=== PATIENT | male | born 1940 | race Caucasian/White ===

== ENCOUNTER 2016-09-26 15:53 | Emergency (ER) | payer BC ==
[2016-09-26] MEDS ORDERED: ROCEPHIN 1 Gm-D5w 50 ml Bag** 50 ML IV ONE ×2 (16:24→16:42)
[2016-09-26] MEDS ORDERED: Zithromax 500 MG/ 250 ML NaCl Premix 250 ML IV ONE ×2 (16:24→17:01)
[2016-09-26] MEDS ORDERED: DUONEB 0.5-3 MG/3 ml Neb IH ONE ×2 (16:24→16:34)
[2016-09-26 16:40] VITALS: O2SAT 96
[2016-09-26 17:06] LABS: BASOPHIL % 0.3 % (0.0-0.4); Eosinophil % 1.4 % (0.00-5.0); Granulocytes % 67.6 % (36.0-66.0); Lymphocytes % 23.3 % (24.0-44.0); Mean Cell Volume 91.5 fl (78-100); Mean Corpuscular Hemoglobin 31.5 pg (26-32); Mean Platelet Volume 9.3 fl (6-9.5); Monocytes % 7.4 % (0.0-12.0); Platelet Count 166 K/mm3 (150-450); Red Blood Count 4.48 M/mm3 (4.1-5.6); Red Cell Distribution Width 14.9 % (11.5-14.0); White Blood Count 6.6 K/mm3 (4.0-10.5)
--- NOTE | 2016-09-26 17:09 | XRAY ---
Indication: Cough. Comparison: September 22, 2016. PA/lateral chest unchanged again hyperinflated and clear with previous CABG surgery. Heart is not enlarged. No new/acute findings.
[2016-09-26 17:45] LABS: ANION GAP 14.4 MEQ/L (5-15); BLOOD UREA NITROGEN 10 mg/dL (9-20); CHLORIDE 103 mEq/L (98-107); Glucose 167 MG/DL (70-110); Potassium 3.8 mEq/L (3.5-5.1); SODIUM 139 mEq/L (136-145)
--- NOTE | 2016-09-26 18:32 | ERPHSYRPT ---
- History of Present Illness Time Seen by Provider: 09/26/16 16:10 Source: patient Exam Limitations: clinical condition Patient Subjective Stated Complaint: PT REPORTS CHEST CONGESTION BEGINNING LAST WEEK-WAS TX AT [place] WITH ANTIBIOTICS-PT STATES THAT THEY HELPED BUT THEN HE HAD TO STOP TAKING THEM DUE TO THEM GETTING HUNG UP IN HIS THROAT Triage Nursing Assessment: PT PINK WARM ET DRY-AMBULATORY WITH NO DIFFICULTY TO ED RM-NO RETRACTIONS NO DIFFICULTY FINISHING SENTENCES NOTED Allergies/Adverse Reactions: No Known Drug Allergies Allergy (Unverified 09/26/16 16:05) Home Medications: Amlodipine Besylate 5 mg [Norvasc 5 mg] 5 mg PO DAILY 09/26/16 [History] Aspirin 81 gm Chew [Baby Aspirin 81 mg Chew] 81 mg PO DAILY 09/26/16 [ History] Atorvastatin Calcium [Lipitor] 40 mg PO HS 09/26/16 [History] Dorzolamide HCl/Timolol Maleat [Dorzolamide-Timolol Eye Drops] 10 ml OP BID [History] Furosemide 20 mg [Lasix 20 mg] 20 mg PO BID 09/26/16 [History] Gabapentin [Neurontin] 300 mg PO TID 09/26/16 [History] Insulin Aspart [NovoLOG Insulin] 3 unit SQ UD 09/26/16 [History] Insulin Glargine [Lantus Insulin] 15 unit SQ BID 09/26/16 [History] Latanoprost [Xalatan] 2.5 ml OP UD 09/26/16 [History] Lisinopril [Zestril] 40 mg PO DAILY 09/26/16 [History] Metoprolol Succinate 25 mg Xl* [Toprol-Xl 25MG Tablets] 25 mg PO BID [History] Hx Tetanus, Diphtheria Vaccination/Date Given: No Hx Influenza Vaccination/Date Given: No Hx Pneumococcal Vaccination/Date Given: No Immunizations Up to Date: Yes - Past Medical History Pertinent Past Medical History: Yes Cardiac History: Hypertension, Myocardial Infarction ([place]) Endocrine Medical History: Diabetes Type II - Past Surgical History Past Surgical History: Yes Cardiac: CABG Gastrointestinal: Hernia Repair - Social History Smoking Status: Never smoker Exposure to second hand smoke: No Drug Use: none Patient Lives Alone: No - Nursing Vital Signs Nursing Vital Signs: Initial Vital Signs Temperature 98.2 F Temperature Source Oral Pulse Rate 66 Respiratory Rate 16 Blood Pressure [Right Arm] 146/62 Pain Intensity 0 - Physical Exam SpO2: 96 Oxygen Delivery: Room Air - Course EKG Interpreted by Me: RATE, Sinus Rhythm, NORMAL AXIS - Radiology Exams Chest X-ray Interpretation: Interpreted by me (NO NEW/ACUTE FINDING) Ordered Tests: Active Orders 24 hr Category Date Time Status Food Stylist STAT Care 09/26/16 16:24 Active EKG-ER Only STAT Care 09/26/16 16:24 Active IV Insertion STAT Care 09/26/16 16:24 Active Oxygen-ED Only NASAL CANNULA 2 lpm Care 09/26/16 16:24 Active CHEST 2 VIEWS (PA AND LAT) Stat Exams 09/26/16 16:24 Completed BLOOD CULTURE Stat Lab 09/26/16 17:06 Received BMP Stat Lab 09/26/16 16:50 Completed CBC W DIFF Stat Lab 09/26/16 16:50 Completed UA Stat Lab 09/26/16 18:17 Received Respiratory Nebulizer STAT RT 09/26/16 16:25 Completed Medication Summary Discontinued Medications Generic Name Dose Route Start Last Admin Trade Name Freq PRN Reason Stop Dose Admin Albuterol/Ipratropium 3 ml 09/26/16 16:24 09/26/16 16:38 Duoneb 0.5-3 Mg/3 Ml Neb IH 09/26/16 16:25 3 ml STAT ONE Administration Albuterol/Ipratropium Confirm 09/26/16 16:34 Duoneb 0.5-3 Mg/3 Ml Neb Administered 09/26/16 16:35 Dose 3 ml IH .STK-MED ONE Azithromycin 250 mls @ 125 mls/hr 09/26/16 16:24 09/26/16 17:03 Zithromax 500 Mg/ 250 Ml Nacl Premix IV 09/26/16 18:23 125 mls/hr STAT ONE Administration Ceftriaxone Sodium/Dextrose 50 mls @ 100 mls/hr 09/26/16 16:24 09/26/16 16:43 Rocephin 1 Gm-D5w 50 Ml Bag IV 09/26/16 16:53 100 mls/hr STAT ONE Administration Ceftriaxone Sodium/Dextrose Confirm 09/26/16 16:42 Rocephin 1 Gm-D5w 50 Ml Bag Administered 09/26/16 16:43 Dose 50 mls @ ud IV .STK-MED ONE Azithromycin Confirm 09/26/16 17:01 Zithromax 500 Mg/ 250 Ml Nacl Premix Administered 09/26/16 17:02 Dose 250 mls @ ud IV .STK-MED ONE Lab/Rad Data: Laboratory Result Diagrams 09/26/16 16:50 09/26/16 16:50 Laboratory Results 09/26/16 09/26/16 Range/Units 16:50 16:50 WBC 6.6 (4.0-10.5) K/mm3 RBC 4.48 (4.1-5.6) M/mm3 Hgb 14.1 (12.5-18.0) gm/dl Hct 41.0 L (42-50) % MCV 91.5 (78-100) fl MCH 31.5 (26-32) pg MCHC 34.4 (32-36) g/dl RDW 14.9 H (11.5-14.0) % Plt Count 166 (150-450) K/mm3 MPV 9.3 (6-9.5) fl Gran % 67.6 H (36.0-66.0) % Lymphocytes % 23.3 L (24.0-44.0) % Monocytes % 7.4 (0.0-12.0) % Eosinophils % 1.4 (0.00-5.0) % Basophils % 0.3 (0.0-0.4) % Basophils # 0.02 (0-0.4) Sodium 139 (136-145) mEq/L Potassium 3.8 (3.5-5.1) mEq/L Chloride 103 (98-107) mEq/L Carbon Dioxide 25.0 (21-32) mEq/L Anion Gap 14.4 (5-15) MEQ/L BUN 10 (9-20) mg/dL Creatinine 1.18 (0.55-1.30) mg/dl Estimated GFR > 60 ML/MIN Glucose 167 H (70-110) MG/DL Calcium 8.8 (8.5-10.1) mg/dL - Progress Progress Note: 09/26/16 18:44 PATIENT GIVEN ALBUTEROL AEROSOL TREATMENT, SOLUMEDROL 125MG. IV ROCEPHIN 1GM, ZITHROMAX 500MG IVPB Blood Culture(s) Obtained: Yes Counseled pt/family regarding: diagnosis, need for follow-up, rad results - Departure Time of Disposition: 18:45 Departure Disposition: Home Clinical Impression: ACUTE BRONCHITIS WITH BRONCHIOSPASM Condition: Stable Critical Care Time: No Referrals: JAVIER ZIMMERMAN [Primary Care Provider] - Additional Instructions: ANTIBIOTIC AUGMENTIN 875MG TWICE DAILY FOR 10 DAYS. ALBUTEROL UNIT AEROSOL TREATMENT EVERY 4 HOURS FOR DIFFICULTY BREATHING. FOLLOWUP WITH FAMILY PHYSICIAN IN 1 WEEK FOR EVALUATION. Prescriptions: Albuterol 2.5 mg/3 ml Neb [Proventil 2.5 mg/3 ml Neb] 2.5 mg IH Q4HPRN PRN #30 neb PRN Reason: DIFFICULTY BREATHING Amox Tr/Potass Clav. 875 mg [Augmentin 875-125 Tablet] 875 mg PO BID #20 tablet
[2016-09-26 18:34] LABS: Bacteria FEW /HPF (NEGATIVE); COMPLETE URINE MICROSCOPIC? YES; Collection Type CLEAN CATCH; Epithelial Cells FEW /HPF (FEW); Ph 7.5 (5-6)
[2016-09-26 19:04] VITALS: BP 115/73; PULSE 72
== END 2016-09-26 19:04 | disposition home or self-care (01) ==
LOC: ED 15:53
DX: J20.9 Acute bronchitis, unspecified (principal); R09.89 Other specified symptoms and signs involving the circulatory and respiratory systems; I10 Essential (primary) hypertension; E11.9 Type 2 diabetes mellitus without complications; Z79.4 Long term (current) use of insulin
CPT/HCPCS: 36000; 36415; 71020; 80048; 81000; 85025; 87040; 93005; 93041; 94640; 96365; 96366; 99284; J0456; J0696; A9270-GY

== ENCOUNTER 2016-09-28 10:53 | Emergency (ER) | payer BC ==
--- NOTE | 2016-09-28 11:33 | ERPHSYRPT ---
- History of Present Illness Time Seen by Provider: 09/28/16 11:24 Source: patient Exam Limitations: no limitations Patient Subjective Stated Complaint: SWALLOWED A TOMATO LAST NIGHT AND FEELS LIKE IT IS STUCK IN HIS THROAT. HAS TRIED SWALLOWING LIQUIDS TO FORCE IT DOWN. OVER THE PAST MONTH HAS HAD TROUBLE SWALLOWING PILLS. Triage Nursing Assessment: AMBULATED TO ROOM PER SELF. SKIN W/D, COLOR NORMAL, RESP NONLABORED. IS ABLE TO SWALLOW BUT STILL FEELS LIKE SOMETHING IS STUCK IN THROAT. Physician History: 76-year-old white male with history of atherosclerotic coronary artery disease, high blood pressure, diabetes, complains of foreign body sensation in his throat symptoms since last night. Patient states that he ate a bologna sandwich with cheese with tomato sandwich last night he feels like he has a piece of tomato stuck in his throat he denies eating a whole Tomato. He is not choking. He is not vomiting he states he is able to swallow water without problems. Past medical history includes high blood pressure, myocardial infarction, diabetes Past surgical history includes CABG, hernia repair Timing/Duration: yesterday (last night at 8:00) Severity: mild Modifying Factors: Improves With: other Associated Symptoms: other (dysphagia), No nausea, No vomiting, No abdominal pain, No shortness of breath, No heartburn, No diaphoresis, No cough, No chills , No chest pain, No fever, No headaches, No loss of appetite, No malaise, No rash, No syncope, No seizure, No weakness Allergies/Adverse Reactions: No Known Drug Allergies Allergy (Verified 09/28/16 11:03) Home Medications: Amlodipine Besylate 5 mg [Norvasc 5 mg] 5 mg PO DAILY 09/26/16 [History] Aspirin 81 gm Chew [Baby Aspirin 81 mg Chew] 81 mg PO DAILY 09/26/16 [ History] Atorvastatin Calcium [Lipitor] 20 mg PO HS 09/26/16 [History] Dorzolamide HCl/Timolol Maleat [Dorzolamide-Timolol Eye Drops] 10 ml OP BID [History] Furosemide 20 mg [Lasix 20 mg] 20 mg PO BID 09/26/16 [History] Gabapentin [Neurontin] 300 mg PO TID 09/26/16 [History] Insulin Aspart [NovoLOG Insulin] 3 unit SQ UD 09/26/16 [History] Insulin Glargine [Lantus Insulin] 15 unit SQ DAILY 09/26/16 [History] Latanoprost [Xalatan] 2.5 ml OP UD 09/26/16 [History] Lisinopril [Zestril] 40 mg PO DAILY 09/26/16 [History] Metoprolol Succinate 25 mg Xl* [Toprol-Xl 25MG Tablets] 25 mg PO BID [History] Insulin Glargine,Hum.rec.anlog [Lantus] 55 unit SQ HS 09/28/16 [History] Niacin [Niaspan] 1,000 mg PO HS 09/28/16 [History] Hx Tetanus, Diphtheria Vaccination/Date Given: Yes Hx Influenza Vaccination/Date Given: No Hx Pneumococcal Vaccination/Date Given: Yes - Review of Systems Constitutional: No Fever, No Chills Eyes: No Symptoms Ears, Nose, & Throat: Other (patient feels like he has a piece of tomato stuck in his throat), No Ear Pain, No Ear Discharge, No Hearing Changes, No Tinnitus, No Nose Pain, No Nose Congestion, No Nose Discharge, No Sinus Drainage, No Epistaxis, No Mouth Pain, No Mouth Swelling, No Loose Teeth, No Throat Pain, No Throat Swelling, No Hoarse, No Painful Swallowing, No Snoring, No Stridor Respiratory: No Cough, No Dyspnea Cardiac: No Chest Pain, No Edema, No Syncope Abdominal/Gastrointestinal: No Abdominal Pain, No Nausea, No Vomiting, No Diarrhea Genitourinary Symptoms: No Dysuria Musculoskeletal: No Back Pain, No Neck Pain Skin: No Rash Neurological: No Dizziness, No Focal Weakness, No Sensory Changes Psychological: No Symptoms Endocrine: No Symptoms All Other Systems: Reviewed and Negative - Past Medical History Pertinent Past Medical History: Yes Cardiac History: Hypertension, Myocardial Infarction ([place]) Endocrine Medical History: Diabetes Type II - Past Surgical History Past Surgical History: Yes Cardiac: CABG Gastrointestinal: Hernia Repair - Social History Smoking Status: Former smoker Exposure to second hand smoke: No Drug Use: none Patient Lives Alone: No - Nursing Vital Signs Nursing Vital Signs: Initial Vital Signs Temperature 97.6 F Temperature Source Oral Pulse Rate 57 Respiratory Rate 16 Blood Pressure [] 136/67 Pain Intensity 0 - Physical Exam General Appearance: no apparent distress, alert Eye Exam: PERRL/EOMI, eyes nml inspection Ears, Nose, Throat Exam: normal ENT inspection, TMs normal, pharynx normal, moist mucous membranes Neck Exam: normal inspection, non-tender, supple, full range of motion Respiratory Exam: normal breath sounds, lungs clear, No respiratory distress Cardiovascular Exam: regular rate/rhythm, normal heart sounds, normal peripheral pulses Gastrointestinal/Abdomen Exam: soft, normal bowel sounds, No tenderness, No mass Back Exam: normal inspection, normal range of motion, No CVA tenderness, No vertebral tenderness Extremity Exam: normal inspection, normal range of motion, pelvis stable Neurologic Exam: alert, oriented x 3, cooperative, normal mood/affect, nml cerebellar function, nml station & gait, sensation nml, No motor deficits Skin Exam: normal color, warm, dry, No rash Lymphatic Exam: No adenopathy SpO2 Interpretation: normal (94%) SpO2: 94 Oxygen Delivery: Room Air - Radiology Exams Other X-ray Interpretation: Discussed w/ radiologist (soft tissue neck: Negative for radiopaque foreign body. Epiglottis normal. Underlying cervical spine intact with minimal multilevel degenerative changes) Chest X-ray Interpretation: Discussed w/ radiologist (Chest x-ray: Impression stable nonacute one view chest with previous CABG surgery) Ordered Tests: Active Orders 24 hr Category Date Time Status CHEST 1 VIEW (PORTABLE) Stat Exams 09/28/16 11:28 Completed NECK SOFT TISSUE Stat Exams 09/28/16 11:29 Completed - Progress Progress: improved Progress Note: 09/28/16 12:37 This is a 76-year-old white male who states that he feels like he has a piece a tomato stuck in his throat since last night. He is not having any coughing he has no pain he is able to swallow water. Patient does state that he's been having problems swallowing pills for about a month. He has been seeing Puneet Stoll. Will discuss case with Dr. Estrella who is assistant plant control operator for Dr. Mack. 09/28/16 13:01 Patient is in no distress at this time x-rays are negative of soft tissue and chest. Patient is not having any problems swallowing. I've discussed the case with Dr. Estrella who is assistant plant control operator for Dr. Mack, Dr. Mack apparently works with Puneet Stoll. Will send patient home. Place patient on clear fluids to follow-up with Puneet Stoll or Dr. Mack tomorrow. Return for acute distress or for severe symptoms - Departure Time of Disposition: 13:02 Departure Disposition: Home Clinical Impression: Dysphagia Qualifiers: Dysphagia type: unspecified Qualified Code(s): R13.10 - Dysphagia, unspecified Condition: Fair Critical Care Time: No Additional Instructions: Return home. Plenty of fluids. Clear fluids only tonight. Follow-up with Dr. Mack or Puneet Stoll tomorrow. Return for acute distress or for severe symptoms.
--- NOTE | 2016-09-28 12:12 | XRAY ---
Indication: Possible stuck tomato. Comparison: None AP/lateral neck obtained with special attention to the soft tissues is negative for radiopaque foreign body. Epiglottis normal. Underlying cervical spine intact with minimal multilevel degenerative changes.
--- NOTE | 2016-09-28 12:14 | XRAY ---
Indication: Possible stuck tomato. Comparison: September 26, 2016. Single PA chest unchanged again hyperinflated and clear with previous CABG surgery. Heart is not enlarged. No radiopaque foreign body. Impression: Stable nonacute one view chest with previous CABG surgery.
[2016-09-28 13:21] VITALS: BP 139/62; PULSE 60; O2SAT 97
== END 2016-09-28 13:29 | disposition home or self-care (01) ==
LOC: ED 10:53
DX: R13.10 Dysphagia, unspecified (principal)
CPT/HCPCS: 70360; 71010; 99283

== ENCOUNTER 2016-10-27 12:58 | Emergency (ER) | payer MEDICARE ==
--- NOTE | 2016-10-27 13:47 | ERPHSYRPT ---
- History of Present Illness Time Seen by Provider: 10/27/16 13:41 Source: patient Exam Limitations: no limitations Patient Subjective Stated Complaint: pt co not voiding very much at a time for a week now, no buring with urination Triage Nursing Assessment: pt alert, skin w/d pink. resp easy, moves all ext well, not drinking or eating well states that he has scope on monday Physician History: The patient is a 76-year-old male who comes in complaining of decreased urine output overnight. He states when he urinates, he has a good stream but it only produces a small amount. He thinks he hasn't been drinking enough. He has no pain. He thinks he has a prostate problem. His past medical history is significant for hypertension, diabetes, high cholesterol, COPD, and edema. Timing/Duration: today Severity: mild Modifying Factors: Improves With: nothing Associated Symptoms: denies symptoms Allergies/Adverse Reactions: No Known Drug Allergies Allergy (Verified 10/27/16 13:39) Home Medications: Amlodipine Besylate 5 mg [Norvasc 5 mg] 5 mg PO DAILY 09/26/16 [History] Aspirin 81 gm Chew [Baby Aspirin 81 mg Chew] 81 mg PO DAILY 09/26/16 [ History] Atorvastatin Calcium [Lipitor] 20 mg PO HS 09/26/16 [History] Dorzolamide HCl/Timolol Maleat [Dorzolamide-Timolol Eye Drops] 10 ml OP BID [History] Furosemide 20 mg [Lasix 20 mg] 20 mg PO BID 09/26/16 [History] Gabapentin [Neurontin] 300 mg PO TID 09/26/16 [History] Insulin Aspart [NovoLOG Insulin] 3 unit SQ UD 09/26/16 [History] Insulin Glargine [Lantus Insulin] 15 unit SQ DAILY 09/26/16 [History] Latanoprost [Xalatan] 2.5 ml OP UD 09/26/16 [History] Lisinopril [Zestril] 40 mg PO DAILY 09/26/16 [History] Metoprolol Succinate 25 mg Xl* [Toprol-Xl 25MG Tablets] 25 mg PO BID [History] Insulin Glargine,Hum.rec.anlog [Lantus] 55 unit SQ HS 09/28/16 [History] Niacin [Niaspan] 1,000 mg PO HS 09/28/16 [History] Hx Tetanus, Diphtheria Vaccination/Date Given: Yes Hx Influenza Vaccination/Date Given: No Hx Pneumococcal Vaccination/Date Given: No Immunizations Up to Date: Yes - Review of Systems Constitutional: No Fever, No Chills Eyes: No Symptoms Ears, Nose, & Throat: No Symptoms Respiratory: No Cough, No Dyspnea Cardiac: No Chest Pain, No Edema, No Syncope Abdominal/Gastrointestinal: No Abdominal Pain, No Nausea, No Vomiting, No Diarrhea Genitourinary Symptoms: Other (decreased urine output) Musculoskeletal: No Back Pain, No Neck Pain Skin: No Rash Neurological: No Dizziness, No Focal Weakness, No Sensory Changes Psychological: No Symptoms Endocrine: No Symptoms Hematologic/Lymphatic: No Symptoms Immunological/Allergic: No Symptoms All Other Systems: Reviewed and Negative - Past Medical History Pertinent Past Medical History: Yes Cardiac History: Congenital Heart Disease, Hypertension, Myocardial Infarction ( [place]) Endocrine Medical History: Diabetes Type II - Past Surgical History Past Surgical History: Yes Cardiac: CABG Gastrointestinal: Hernia Repair - Social History Smoking Status: Never smoker Exposure to second hand smoke: Yes Drug Use: none Patient Lives Alone: Yes - Nursing Vital Signs Nursing Vital Signs: Initial Vital Signs Temperature 97.3 F Temperature Source Oral Pulse Rate 57 Respiratory Rate 16 Blood Pressure [Right Arm] 136/63 Pain Intensity 0 - Physical Exam General Appearance: no apparent distress, alert Eye Exam: PERRL/EOMI, eyes nml inspection Ears, Nose, Throat Exam: normal ENT inspection, TMs normal, pharynx normal, moist mucous membranes Neck Exam: normal inspection, non-tender, supple, full range of motion Respiratory Exam: normal breath sounds, lungs clear, No respiratory distress Cardiovascular Exam: regular rate/rhythm, normal heart sounds, normal peripheral pulses Gastrointestinal/Abdomen Exam: soft, normal bowel sounds, No tenderness, No mass Rectal Exam: not done Back Exam: normal inspection, normal range of motion, No CVA tenderness, No vertebral tenderness Extremity Exam: normal range of motion, pelvis stable, pedal edema Neurologic Exam: alert, oriented x 3, cooperative, normal mood/affect, nml cerebellar function, nml station & gait, sensation nml, No motor deficits Skin Exam: normal color, warm, dry, No rash Lymphatic Exam: No adenopathy SpO2 Interpretation: normal SpO2: 97 Oxygen Delivery: Room Air - Radiology Exams Chest X-ray Interpretation: Teleradiologist Report, Negative (per Dr Evans) Ordered Tests: Active Orders 24 hr Category Date Time Status CHEST 2 VIEWS (PA AND LAT) Stat Exams 10/27/16 13:52 Completed BMP Stat Lab 10/27/16 14:00 Completed CBC W DIFF Stat Lab 10/27/16 14:00 Completed NT PRO BNP Stat Lab 10/27/16 14:00 Completed UA Stat Lab 10/27/16 13:52 Completed Lab/Rad Data: Laboratory Result Diagrams 10/27/16 14:00 10/27/16 14:00 Laboratory Results 10/27/16 10/27/16 10/27/16 Range/Units 14:00 14:00 13:52 WBC 6.3 (4.0-10.5) K/mm3 RBC 4.31 (4.1-5.6) M/mm3 Hgb 12.9 (12.5-18.0) gm/dl Hct 39.5 L (42-50) % MCV 91.6 (78-100) fl MCH 29.9 (26-32) pg MCHC 32.7 (32-36) g/dl RDW 14.0 (11.5-14.0) % Plt Count 147 L (150-450) K/mm3 MPV 9.8 H (6-9.5) fl Gran % 66.9 H (36.0-66.0) % Lymphocytes % 20.6 L (24.0-44.0) % Monocytes % 10.6 (0.0-12.0) % Eosinophils % 1.4 (0.00-5.0) % Basophils % 0.5 (0.0-0.4) % Basophils # 0.03 (0-0.4) Sodium 138 (136-145) mEq/L Potassium 3.9 (3.5-5.1) mEq/L Chloride 104 (98-107) mEq/L Carbon Dioxide 23.8 (21-32) mEq/L Anion Gap 14.4 (5-15) MEQ/L BUN 13 (9-20) mg/dL Creatinine 1.09 (0.55-1.30) mg/dl Estimated GFR > 60 ML/MIN Glucose 99 (70-110) MG/DL Calcium 8.8 (8.5-10.1) mg/dL NT-Pro-B Natriuret Pep 174 (0-450) pg/ml Ur Collection Type CLEAN CATCH Urine Color YELLOW (YELLOW) Urine Appearance CLEAR (CLEAR) Urine pH 6.0 (5-6) Ur Specific [place] 1.020 (1.005-1.025) Urine Protein NEGATIVE (Negative) Urine Glucose (UA) NEGATIVE (NEGATIVE) mg/dL Urine Ketones NEGATIVE (NEGATIVE) Urine Nitrite NEGATIVE (NEGATIVE) Urine Bilirubin NEGATIVE (NEGATIVE) Urine Urobilinogen 0.2 (0-1) mg/dL Urine WBC (Auto) NEGATIVE (NEGATIVE) Urine RBC (Auto) NEGATIVE (0-5) Edward/ul Specimen Received 10/27/16 1420 - Progress Progress: unchanged - Departure Time of Disposition: 15:58 Departure Disposition: Home Clinical Impression: Dysuria Condition: Stable Critical Care Time: No Additional Instructions: Stay well hydrated. Follow up with your PMD in 1 to 2 days.
[2016-10-27 14:19] LABS: BASOPHIL % 0.5 % (0.0-0.4); Eosinophil % 1.4 % (0.00-5.0); Granulocytes % 66.9 % (36.0-66.0); Lymphocytes % 20.6 % (24.0-44.0); Mean Cell Volume 91.6 fl (78-100); Mean Corpuscular Hemoglobin 29.9 pg (26-32); Mean Platelet Volume 9.8 fl (6-9.5); Monocytes % 10.6 % (0.0-12.0); Platelet Count 147 K/mm3 (150-450); Red Blood Count 4.31 M/mm3 (4.1-5.6); White Blood Count 6.3 K/mm3 (4.0-10.5)
[2016-10-27 14:23] LABS: Collection Type CLEAN CATCH
[2016-10-27 14:24] LABS: COMPLETE URINE MICROSCOPIC? NO
[2016-10-27 14:35] LABS: ANION GAP 14.4 MEQ/L (5-15); BLOOD UREA NITROGEN 13 mg/dL (9-20); CHLORIDE 104 mEq/L (98-107); Carbon Dioxide 23.8 mEq/L (21-32); Glucose 99 MG/DL (70-110); Potassium 3.9 mEq/L (3.5-5.1); SODIUM 138 mEq/L (136-145)
--- NOTE | 2016-10-27 14:42 | XRAY ---
Indication: Edema. Back pain. Unable to urinate. Comparison: September 28, 2016. PA/lateral chest remains hyperinflated and clear with previous CABG surgery. Heart is not enlarged. No new/acute findings.
[2016-10-27 16:07] VITALS: BP 141/98; PULSE 55; O2SAT 95
== END 2016-10-27 16:06 | disposition home or self-care (01) ==
LOC: ED 12:58
DX: R30.0 Dysuria (principal); I10 Essential (primary) hypertension; E11.9 Type 2 diabetes mellitus without complications; E78.00 Pure hypercholesterolemia, unspecified; J44.9 Chronic obstructive pulmonary disease, unspecified; Z79.899 Other long term (current) drug therapy; Z79.84 Long term (current) use of oral hypoglycemic drugs; Z79.4 Long term (current) use of insulin
CPT/HCPCS: 36415; 71020; 80048; 81002; 83880; 85025; 99283; 99284

== ENCOUNTER 2016-10-30 13:18 | Emergency (ER) | payer MEDICARE ==
[2016-10-30] MEDS ORDERED: Sodium Chloride 0.9% 1000 ML 1,000 ML IV STA (13:38)
[2016-10-30 13:42] VITALS: O2SAT 96
[2016-10-30] MEDS ORDERED: Sodium Chloride 0.9% 1000 ML 1,000 ML ONE (13:43)
--- NOTE | 2016-10-30 13:43 | ERPHSYRPT ---
- History of Present Illness Time Seen by Provider: 10/30/16 13:42 Source: patient Exam Limitations: no limitations Patient Subjective Stated Complaint: pt states he normally has back pain but pain has been worse for the past 1 week. pt a;so c/o blood in stool after having a bowel movement. pt also states he has had night sweats for the past 2 nights. Triage Nursing Assessment: pt pink, warm, dry. pt ambulated into er on own. no deformities noted to back. Physician History: pt states he normally has back pain but pain has been worse for the past 1 week. pt a;so c/o blood in stool after having a bowel movement. pt also states he has had night sweats for the past 2 nights. Timing/Duration: week(s) (1 week) Severity: moderate Associated Symptoms: other (blood in stool, lower back pain) Allergies/Adverse Reactions: No Known Drug Allergies Allergy (Verified 10/30/16 13:33) Home Medications: Amlodipine Besylate 5 mg [Norvasc 5 mg] 5 mg PO DAILY 09/26/16 [History] Aspirin 81 gm Chew [Baby Aspirin 81 mg Chew] 81 mg PO DAILY 09/26/16 [ History] Atorvastatin Calcium [Lipitor] 20 mg PO HS 09/26/16 [History] Dorzolamide HCl/Timolol Maleat [Dorzolamide-Timolol Eye Drops] 10 ml OP BID [History] Furosemide 20 mg [Lasix 20 mg] 20 mg PO BID 09/26/16 [History] Gabapentin [Neurontin] 300 mg PO TID 09/26/16 [History] Insulin Aspart [NovoLOG Insulin] 10 unit SQ UD 09/26/16 [History] Insulin Glargine [Lantus Insulin] 50 unit SQ DAILY 09/26/16 [History] Latanoprost [Xalatan] 2.5 ml OP UD 09/26/16 [History] Lisinopril [Zestril] 40 mg PO DAILY 09/26/16 [History] Metoprolol Succinate 25 mg Xl* [Toprol-Xl 25MG Tablets] 25 mg PO BID [History] Insulin Glargine,Hum.rec.anlog [Lantus] 80 unit SQ HS 09/28/16 [History] Niacin [Niaspan] 1,000 mg PO HS 09/28/16 [History] Hx Tetanus, Diphtheria Vaccination/Date Given: Yes (up to date) Hx Influenza Vaccination/Date Given: No Hx Pneumococcal Vaccination/Date Given: No Immunizations Up to Date: Yes - Review of Systems Constitutional: No Fever, No Chills Eyes: No Symptoms Ears, Nose, & Throat: No Symptoms Respiratory: No Cough, No Dyspnea Cardiac: No Chest Pain, No Edema, No Syncope Abdominal/Gastrointestinal: Hematochezia, No Abdominal Pain, No Nausea, No Vomiting, No Diarrhea Genitourinary Symptoms: No Dysuria Musculoskeletal: Back Pain, No Neck Pain Skin: No Rash Neurological: No Dizziness, No Focal Weakness, No Sensory Changes Psychological: No Symptoms Endocrine: No Symptoms All Other Systems: Reviewed and Negative - Past Medical History Pertinent Past Medical History: Yes Cardiac History: Congenital Heart Disease, Hypertension, Myocardial Infarction ( [place]) Endocrine Medical History: Diabetes Type II - Past Surgical History Past Surgical History: Yes Cardiac: CABG Gastrointestinal: Hernia Repair - Social History Smoking Status: Former smoker Exposure to second hand smoke: No Drug Use: none Patient Lives Alone: No - Nursing Vital Signs Nursing Vital Signs: Initial Vital Signs Temperature 98.2 F Temperature Source Oral Pulse Rate 58 Respiratory Rate 18 Blood Pressure [Right Arm] 150/65 Pain Intensity [Lower Back] 5 Pain Intensity 0 - Physical Exam General Appearance: no apparent distress, alert Eye Exam: PERRL/EOMI, eyes nml inspection Ears, Nose, Throat Exam: normal ENT inspection, TMs normal, pharynx normal, moist mucous membranes Neck Exam: normal inspection, non-tender, supple, full range of motion Respiratory Exam: normal breath sounds, lungs clear, No respiratory distress Cardiovascular Exam: regular rate/rhythm, normal heart sounds, normal peripheral pulses Gastrointestinal/Abdomen Exam: soft, normal bowel sounds, No tenderness, No mass Back Exam: normal inspection, normal range of motion, No CVA tenderness, No vertebral tenderness Extremity Exam: normal inspection, normal range of motion, pelvis stable Neurologic Exam: alert, oriented x 3, cooperative, normal mood/affect, nml cerebellar function, nml station & gait, sensation nml, No motor deficits Skin Exam: normal color, warm, dry, No rash Lymphatic Exam: No adenopathy SpO2: 96 Oxygen Delivery: Room Air Ordered Tests: Active Orders 24 hr 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 Care 10/30/16 13:38 Active OBSTR/ACUTE ABDOMEN SERIES Stat Exams 10/30/16 13:39 Taken CBC W DIFF Stat Lab 10/30/16 13:55 Completed CMP Stat Lab 10/30/16 13:55 Completed Occult Blood,Stool Other Stat Lab 10/30/16 13:38 Ordered UA Stat Lab 10/30/16 13:55 Completed Medication Summary Generic Name Dose Route Start Last Admin Trade Name Freq PRN Reason Stop Dose Admin Ketorolac Tromethamine 30 mg 10/30/16 14:42 Toradol 30 Mg Injection IV 10/30/16 14:43 STAT ONE Discontinued Medications Generic Name Dose Route Start Last Admin Trade Name Freq PRN Reason Stop Dose Admin Sodium Chloride 1,000 mls @ 999 mls/hr 10/30/16 13:38 10/30/16 13:52 Sodium Chloride 0.9% 1000 Ml IV 10/30/16 14:38 999 mls/hr .Q1H1M STA Administration Sodium Chloride Confirm 10/30/16 13:43 Sodium Chloride 0.9% 1000 Ml Administered 10/30/16 13:44 Dose 1,000 mls @ ud .ROUTE .STK-MED ONE Lab/Rad Data: Laboratory Result Diagrams 10/30/16 13:55 10/30/16 13:55 Laboratory Results 10/30/16 10/30/16 10/30/16 Range/Units 13:55 13:55 13:55 WBC 6.0 (4.0-10.5) K/mm3 RBC 4.42 (4.1-5.6) M/mm3 Hgb 13.4 (12.5-18.0) gm/dl Hct 40.2 L (42-50) % MCV 91.0 (78-100) fl MCH 30.3 (26-32) pg MCHC 33.3 (32-36) g/dl RDW 14.3 H (11.5-14.0) % Plt Count 147 L (150-450) K/mm3 MPV 10.0 H (6-9.5) fl Gran % 74.2 H (36.0-66.0) % Lymphocytes % 16.6 L (24.0-44.0) % Monocytes % 8.0 (0.0-12.0) % Eosinophils % 1.0 (0.00-5.0) % Basophils % 0.2 (0.0-0.4) % Basophils # 0.01 (0-0.4) Sodium 139 (136-145) mEq/L Potassium 3.9 (3.5-5.1) mEq/L Chloride 102 (98-107) mEq/L Carbon Dioxide 23.8 (21-32) mEq/L Anion Gap 17.5 H (5-15) MEQ/L BUN 13 (9-20) mg/dL Creatinine 0.96 (0.55-1.30) mg/dl Estimated GFR > 60 ML/MIN Glucose 141 H (70-110) MG/DL Calcium 8.9 (8.5-10.1) mg/dL Total Bilirubin 0.4 (0.2-1.0) mg/dL AST 21 (15-37) U/L ALT 9 L (12-78) U/L Alkaline Phosphatase 75 (46-116) U/L Serum Total Protein 7.4 (6.4-8.2) gm/dL Albumin 3.7 (3.4-5.0) g/dL Ur Collection Type VOID Urine Color YELLOW (YELLOW) Urine Appearance CLEAR (CLEAR) Urine pH 6.0 (5-6) Ur Specific [place] 1.010 (1.005-1.025) Urine Protein NEGATIVE (Negative) Urine Glucose (UA) NEGATIVE (NEGATIVE) mg/dL Urine Ketones NEGATIVE (NEGATIVE) Urine Nitrite NEGATIVE (NEGATIVE) Urine Bilirubin NEGATIVE (NEGATIVE) Urine Urobilinogen 0.2 (0-1) mg/dL Urine WBC (Auto) NEGATIVE (NEGATIVE) Urine RBC (Auto) NEGATIVE (0-5) Edward/ul Specimen Received 10/30/16 1355 - Departure Time of Disposition: 14:44 Departure Disposition: Home Clinical Impression: Lumbalgia Qualifiers: Chronicity: acute Back pain laterality: midline Sciatica presence: without sciatica Qualified Code(s): M54.5 - Low back pain Osteoarthritis of lumbosacral spine Qualifiers: Spinal osteoarthritis complication: without myelopathy or radiculopathy Qualified Code(s): M47.817 - Spondylosis without myelopathy or radiculopathy, lumbosacral region Condition: Stable Critical Care Time: No Referrals: DERRICK MARTINEZ [Primary Care Provider] - Instructions: Low Back Pain Additional Instructions: BACK INJURY 1. May apply moist heat frequently for relief of pain. Take care not to burn the skin. Do not use heat for more than 30 minutes at a time. 2. Try to sleep on a firm bed, flat on your back. 3. If no improvement is noticed in 2-3 days, follow up with your family physician. 4. If you notice any numbness, tingling, weakness, or problems with your bowel or bladder, you should call your family physician or return to the emergency department. Please follow the instructions given to you. Please take your medication as prescribed if given. If symptoms recur or get worse, come back to the emergency room if you cannot reach your primary care physician, or call your primary care physician for an appointment. Again if your symptoms get worse, come back to the emergency room. Thanks for visiting emergency room, and let us take care of you.
[2016-10-30 14:01] LABS: BASOPHIL % 0.2 % (0.0-0.4); Granulocytes % 74.2 % (36.0-66.0); Lymphocytes % 16.6 % (24.0-44.0); Mean Corpuscular Hemoglobin 30.3 pg (26-32); Platelet Count 147 K/mm3 (150-450); Red Blood Count 4.42 M/mm3 (4.1-5.6); Red Cell Distribution Width 14.3 % (11.5-14.0)
[2016-10-30 14:02] LABS: COMPLETE URINE MICROSCOPIC? NO; Collection Type VOID
[2016-10-30 14:29] LABS: ALBUMIN 3.7 g/dL (3.4-5.0); ALKALINE PHOSPHATASE 75 U/L (46-116); ANION GAP 17.5 MEQ/L (5-15); BILIRUBIN,TOTAL 0.4 mg/dL (0.2-1.0); BLOOD UREA NITROGEN 13 mg/dL (9-20); CHLORIDE 102 mEq/L (98-107); Carbon Dioxide 23.8 mEq/L (21-32); Glucose 141 MG/DL (70-110); Potassium 3.9 mEq/L (3.5-5.1); SGOT/AST 21 U/L (15-37); SGPT/ALT 9 U/L (12-78); SODIUM 139 mEq/L (136-145); Total Protein 7.4 gm/dL (6.4-8.2)
[2016-10-30] MEDS ORDERED: TORAdol 30 mg Injection IV ONE (14:42)
[2016-10-30] MEDS ORDERED: TORAdol 30 mg Injection ONE (14:46)
[2016-10-30 14:56] VITALS: BP 134/76; PULSE 70
--- NOTE | 2016-10-30 20:29 | XRAY ---
Indication: Blood in stool. Comparison: Chest radiograph October 27, 2016. 2 views of the abdomen demonstrates 2.3 cm right renal staghorn calculus. Bowel gas pattern nonspecific and nonobstructed. No free air. Minimal vascular calcifications. Osseous structures intact with mild lumbar and bilateral hip degenerative changes. Single PA chest remains hyperinflated and clear. Heart is not enlarged and again demonstrates previous CABG surgery. Impression: 1. Right renal staghorn calculus. CT renal stone study may yield further information if there is concern for obstructive uropathy. 2. Stable nonacute one view chest.
== END 2016-10-30 14:56 | disposition home or self-care (01) ==
LOC: ED 13:18
DX: M54.5 Low back pain (principal); M47.817 Spondylosis without myelopathy or radiculopathy, lumbosacral region
CPT/HCPCS: 36415; 74022; 80053; 81002; 85025; 93041; 96360; 96374; 99284; J1885

== ENCOUNTER 2016-10-31 05:44 | Day surgery (SDC) | payer MEDICARE ==
[2016-10-31] MEDS ORDERED: Lactated Ringers 1,000 ML IV SCH (06:30)
[2016-10-31] MEDS ORDERED: Ketamine HCl 50 MG/ML IJ ONE (08:00)
[2016-10-31] MEDS ORDERED: DIPRIVAN 200 MG/20 ML IV ONE (08:00)
--- NOTE | 2016-10-31 08:36 | OP ---
SURGERY DATE/TIME: 10/31/2016 0731 PREOPERATIVE DIAGNOSIS: Dysphagia. POSTOPERATIVE DIAGNOSES: 1) Moderate antral gastritis. 2) Moderate duodenitis. PROCEDURE: Esophagogastroduodenoscopy with biopsy. SURGEON: Dr. Mack. ANESTHESIA: Medications were given by the anesthesia department. BRIEF HISTORY: The patient is a 76 year old white male patient presenting now for complaints of dysphagia. He reports he has been having problems for not quite a year where he is having trouble swallowing his pills. He points to his throat as being the area where he feels the pills are getting stuck. The patient was felt the need to have endoscopic evaluation. He was appraised of the risks of the procedure including the risk of perforation, phlebitis, untoward reaction to medication, bleeding, and missed lesions. The patient verbalized his understanding and desired to have the procedure performed. DESCRIPTION OF PROCEDURE: The patient was given the medications by the anesthesia department. He had continuous pulse oximetry, ECG monitoring, intermittent blood pressure monitoring and tidal CO2 monitoring during the examination. He was placed in the left lateral decubitus position. A bite block was placed. The flexible Olympus gastroscope was used to intubate the oropharynx. The scope was easily introduced in the esophagus which appeared to be essentially normal throughout its length. The stomach was entered where normal gastric rugal folds were seen. The gastric cote was suctioned dry and the stomach was re-insufflated. The scope was passed along the greater curvature of the stomach to the antrum. There appeared to be moderate erythema and edema in this area. The pylorus encountered and intubated. The duodenum inspected and found to also have areas of mild erosions and erythema. The scope is withdrawn towards the stomach. A retroflex view was obtained of the lesser curvature, fundus and cardia regions and no additional lesions were noted. The scope was then redirected towards the gastric antrum and biopsies were obtained to rule out the presence of Helicobacter pylori-type organisms. The scope was then removed from the patient who tolerated the procedure well and was sent back to the [facility] good condition.
[2016-10-31 08:56] VITALS: PULSE 50; O2SAT 99
[2016-10-31 09:29] VITALS: BP 103/53
== END 2016-10-31 09:25 | disposition home or self-care (01) ==
LOC: SDC 05:44
PROVIDERS: ATTEND Family Medicine
PROC: 0DB68ZX Excision of Stomach, Via Natural or Artificial Opening Endoscopic, Diagnostic (ICD-10-PCS; principal; 2016-10-31)
DX: K29.70 Gastritis, unspecified, without bleeding (principal); K29.80 Duodenitis without bleeding; E11.9 Type 2 diabetes mellitus without complications
CPT/HCPCS: 00740; 36415; 82962; 99100; J2704

== ENCOUNTER 2018-11-11 12:52 | Emergency (ER) | payer MEDICARE ==
[2018-11-11 12:59] VITALS: BP 171/89; PULSE 62; O2SAT 98
--- NOTE | 2018-11-11 13:17 | ERPHSYRPT ---
- History of Present Illness Time Seen by Provider: 11/11/18 13:13 Source: patient Exam Limitations: no limitations Patient Subjective Stated Complaint: Pt states "My left ear hurts. It has hurt for a week." Triage Nursing Assessment: Pt alert and oriented X 3, skin pwd. Pt ambulates with an upright steady gait, able to speak in clear full sentences. Physician History: Pt states "My left ear hurts. It has hurt for a week." he tried to clear his ear with Q-tips a week ago and pain started since then. Timing/Duration: gradual onset ENT Location: ear (L) Prearrival Treatment: no prearrival treatment Associated Symptoms: denies symptoms Allergies/Adverse Reactions: No Known Drug Allergies Allergy (Verified 10/31/16 06:23) Home Medications: Amlodipine Besylate 5 mg [Norvasc 5 mg] 5 mg PO DAILY 09/26/16 [History] Aspirin 81 gm Chew [Baby Aspirin 81 mg Chew] 81 mg PO DAILY 09/26/16 [ History] Atorvastatin Calcium [Lipitor] 20 mg PO HS 09/26/16 [History] Dorzolamide HCl/Timolol Maleat [Dorzolamide-Timolol Eye Drops] 10 ml OP BID [History] Furosemide 20 mg [Lasix 20 mg] 20 mg PO BID 09/26/16 [History] Gabapentin [Neurontin] 300 mg PO TID 09/26/16 [History] Insulin Aspart [NovoLOG Insulin] 10 unit SQ UD 09/26/16 [History] Insulin Glargine [Lantus Insulin] 50 unit SQ DAILY 09/26/16 [History] Latanoprost [Xalatan] 2.5 ml OP UD 09/26/16 [History] Lisinopril [Zestril] 40 mg PO DAILY 09/26/16 [History] Metoprolol Succinate 25 mg Xl* [Toprol-Xl 25MG Tablets] 25 mg PO BID [History] Insulin Glargine,Hum.rec.anlog [Lantus] 80 unit SQ HS 09/28/16 [History] Niacin [Niaspan] 1,000 mg PO HS 09/28/16 [History] Hx Tetanus, Diphtheria Vaccination/Date Given: Yes Hx Influenza Vaccination/Date Given: No Hx Pneumococcal Vaccination/Date Given: No Immunizations Up to Date: Yes - Review of Systems Constitutional: No Symptoms Eyes: No Symptoms Ears, Nose, & Throat: Ear Pain, No Ear Discharge, No Hearing Changes, No Tinnitus Respiratory: No Symptoms Cardiac: No Symptoms Abdominal/Gastrointestinal: No Symptoms Genitourinary Symptoms: No Symptoms - Past Medical History Pertinent Past Medical History: Yes Neurological History: No Pertinent History ENT History: Glaucoma, Other Cardiac History: Congenital Heart Disease, Hypertension, Myocardial Infarction ( [place]) Respiratory History: COPD Endocrine Medical History: Diabetes Type II Musculoskeletal History: Arthritis GI Medical History: Esophageal Disorder, GERD, Other History: No Pertinent History Psycho-Social History: No Pertinent History Male Reproductive Disorders: No Pertinent History Other Medical History: legally blind L eye, glaucoma R eye, trouble swallowing - Past Surgical History Past Surgical History: Yes Neuro Surgical History: No Pertinent History Cardiac: CABG Respiratory: No Pertinent History Gastrointestinal: Hernia Repair Genitourinary: No Pertinent History Musculoskeletal: No Pertinent History Male Surgical History: No Pertinent History Other Surgical History: R lower abdomen trouble with hernia from the past - Social History Smoking Status: Former smoker How long have you smoked: 20-30 year Exposure to second hand smoke: No Drug Use: none Patient Lives Alone: Yes - Nursing Vital Signs Nursing Vital Signs: Initial Vital Signs Temperature 97.8 F 11/11/18 12:56 Pulse Rate 62 11/11/18 12:56 Respiratory Rate 16 11/11/18 12:56 Blood Pressure 171/89 11/11/18 12:56 O2 Sat by Pulse Oximetry 98 11/11/18 12:56 Pain Scale Pain Intensity 8 - Physical Exam General Appearance: no apparent distress, alert Ear Exam: left ear: swelling, tenderness Nasal Exam: normal inspection Throat Exam: normal Neck Exam: normal inspection Cardiovascular/Respiratory Exam: chest non-tender Abdominal Exam: non-tender Neurologic Exam: alert SpO2: 98 - Course Nursing assessment & vital signs reviewed: Yes Ordered Tests: Medication Summary Generic Name Dose Route Start Last Admin Trade Name Freq PRN Reason Stop Dose Admin Neomycin/Polymyxin/Hydrocortisone 0.25 ml 11/11/18 17:00 Cortisporin Ear Drops 10 Ml Suspension OT 12/11/18 16:59 QID RADHA - Progress Progress: unchanged Counseled pt/family regarding: diagnosis, need for follow-up - Departure Departure Disposition: Home Clinical Impression: Otalgia of left ear Condition: Stable Critical Care Time: No Referrals: JAVIER ZIMMERMAN [Primary Care Provider] - Instructions: Outer Ear Infection Additional Instructions: Donot insert Q-tips in your ears. EARACHE 1. If antibiotics are prescribed, take them as directed until gone. 2. Decongestants may be useful. 3. Avoid inserting objects into the ear, such as Q-tips. 4. Acetaminophen or Ibuprofen as directed may help reduce any temperature and help with any associated pain. 5. Contact your child's family physician if there is no improvement in the child's condition within 48 hours.
[2018-11-11] MEDS ORDERED: CORTISPORIN EAR DROPS 10 ML SUSPENSION OT ONE (13:18)
[2018-11-11] MEDS ORDERED: CORTISPORIN EAR DROPS 10 ML SUSPENSION OT SCH (17:00)
== END 2018-11-11 13:40 | disposition home or self-care (01) ==
LOC: ED 12:52
DX: H92.02 Otalgia, left ear (principal); I10 Essential (primary) hypertension; J44.9 Chronic obstructive pulmonary disease, unspecified; E11.9 Type 2 diabetes mellitus without complications; Z79.4 Long term (current) use of insulin; K21.9 Gastro-esophageal reflux disease without esophagitis; M19.90 Unspecified osteoarthritis, unspecified site; Z79.899 Other long term (current) drug therapy; I25.2 Old myocardial infarction
CPT/HCPCS: 99283; A9270-GY

== ENCOUNTER 2018-11-27 12:34 | Emergency (ER) | payer MEDICARE ==
[2018-11-27 13:12] VITALS: O2SAT 98
--- NOTE | 2018-11-27 14:17 | ERPHSYRPT ---
- History of Present Illness Time Seen by Provider: 11/27/18 14:08 Source: patient Exam Limitations: no limitations Patient Subjective Stated Complaint: pt reports ear pain for 2 weeks, states he was seen at this facility last monday for the same issue and prescribed ear drops. pt reports pain did improve but has since worsened. Triage Nursing Assessment: pt aox3, pupils perrl, afebrile, resps easy and non labored, radial pulses strong and equal, pt skin pink warm dry. no redness or discharge noted to the external left ear. Physician History: 78-year-old white male with history of glaucoma, diabetes type 2, COPD, congenital heart disease, high blood pressure, myocardial infarction, esophageal disease, GERD, arthritis Patient arrives with complaint of left ear pain for 2 weeks. He states that he was seen 2 weeks ago given some eardrops he states that his pain has returned. He also states that he feels pain in the area anterior to the left ear as well. He has not been otherwise ill. Past medical history includes glaucoma, diabetes type 2, COPD, congenital heart disease, high blood pressure, myocardial infarction, esophageal disease, GERD, arthritis, patient legally blind in the left eye, glaucoma left eye. Past surgical history includes cataracts, CABG, heart murmur, Timing/Duration: week(s) (2 weeks) Severity: moderate Modifying Factors: Improves With: nothing Associated Symptoms: No nausea, No vomiting, No abdominal pain, No shortness of breath, No heartburn, No diaphoresis, No cough, No chills, No chest pain, No fever, No headaches, No loss of appetite, No malaise, No rash, No syncope, No seizure, No weakness Allergies/Adverse Reactions: No Known Drug Allergies Allergy (Verified 11/27/18 13:17) Home Medications: Amlodipine Besylate 5 mg [Norvasc 5 mg] 5 mg PO DAILY 09/26/16 [History] Aspirin 81 gm Chew [Baby Aspirin 81 mg Chew] 81 mg PO DAILY 09/26/16 [ History] Atorvastatin Calcium [Lipitor] 20 mg PO HS 09/26/16 [History] Dorzolamide HCl/Timolol Maleat [Dorzolamide-Timolol Eye Drops] 10 ml OP BID [History] Furosemide 20 mg [Lasix 20 mg] 20 mg PO BID 09/26/16 [History] Gabapentin [Neurontin] 300 mg PO TID 09/26/16 [History] Insulin Aspart [NovoLOG Insulin] 10 unit SQ UD 09/26/16 [History] Insulin Glargine [Lantus Insulin] 50 unit SQ DAILY 09/26/16 [History] Latanoprost [Xalatan] 2.5 ml OP UD 09/26/16 [History] Lisinopril [Zestril] 40 mg PO DAILY 09/26/16 [History] Metoprolol Succinate 25 mg Xl* [Toprol-Xl 25MG Tablets] 25 mg PO BID [History] Insulin Glargine,Hum.rec.anlog [Lantus] 80 unit SQ HS 09/28/16 [History] Niacin [Niaspan] 1,000 mg PO HS 09/28/16 [History] Hx Tetanus, Diphtheria Vaccination/Date Given: Yes Hx Influenza Vaccination/Date Given: No Hx Pneumococcal Vaccination/Date Given: No Immunizations Up to Date: Yes - Review of Systems Constitutional: No Fever, No Chills Eyes: No Symptoms Ears, Nose, & Throat: Ear Pain, No Ear Discharge, No Hearing Changes, No Tinnitus, No Nose Pain, No Nose Congestion, No Nose Discharge, No Sinus Drainage , No Epistaxis, No Mouth Pain, No Mouth Swelling, No Loose Teeth, No Throat Pain , No Throat Swelling, No Hoarse, No Painful Swallowing, No Snoring Respiratory: No Cough, No Dyspnea Cardiac: No Chest Pain, No Edema, No Syncope Abdominal/Gastrointestinal: No Abdominal Pain, No Nausea, No Vomiting, No Diarrhea Genitourinary Symptoms: No Dysuria Musculoskeletal: No Back Pain, No Neck Pain Skin: No Rash Neurological: No Dizziness, No Focal Weakness, No Sensory Changes Psychological: No Symptoms Endocrine: No Symptoms All Other Systems: Reviewed and Negative - Past Medical History Pertinent Past Medical History: Yes Neurological History: No Pertinent History ENT History: Glaucoma, Other Cardiac History: Congenital Heart Disease, Hypertension, Myocardial Infarction ( [place]) Respiratory History: COPD Endocrine Medical History: Diabetes Type II Musculoskeletal History: Arthritis GI Medical History: Esophageal Disorder, GERD, Other History: No Pertinent History Psycho-Social History: No Pertinent History Male Reproductive Disorders: No Pertinent History Other Medical History: legally blind L eye, glaucoma R eye, trouble swallowing - Past Surgical History Past Surgical History: Yes Neuro Surgical History: No Pertinent History Cardiac: CABG Respiratory: No Pertinent History Gastrointestinal: Hernia Repair Genitourinary: No Pertinent History Musculoskeletal: No Pertinent History Male Surgical History: No Pertinent History Other Surgical History: R lower abdomen trouble with hernia from the past - Social History Smoking Status: Former smoker How long have you smoked: 20-30 year Exposure to second hand smoke: No Drug Use: none Patient Lives Alone: Yes - Nursing Vital Signs Nursing Vital Signs: Initial Vital Signs Temperature 97.4 F 11/27/18 13:05 Pulse Rate 57 L 11/27/18 13:05 Respiratory Rate 20 11/27/18 13:05 Blood Pressure 156/85 11/27/18 13:05 O2 Sat by Pulse Oximetry 98 11/27/18 13:05 Pain Scale Pain Intensity 5 - Physical Exam General Appearance: no apparent distress, alert Eye Exam: PERRL/EOMI, eyes nml inspection Ears, Nose, Throat Exam: pharynx normal, moist mucous membranes, TM abnormal (L ) (left TM dull) Neck Exam: normal inspection, non-tender, supple, full range of motion Respiratory Exam: normal breath sounds, lungs clear, No respiratory distress Cardiovascular Exam: regular rate/rhythm, normal heart sounds, normal peripheral pulses, capillary refill <2 sec Gastrointestinal/Abdomen Exam: soft, normal bowel sounds, No tenderness, No mass Back Exam: normal inspection, normal range of motion, No CVA tenderness, No vertebral tenderness Extremity Exam: normal inspection, normal range of motion, pelvis stable Neurologic Exam: alert, oriented x 3, cooperative, duty manager II-XII nml as tested, normal mood/affect, nml cerebellar function, nml station & gait, sensation nml, No motor deficits Skin Exam: normal color, warm, dry, No rash Lymphatic Exam: No adenopathy SpO2 Interpretation: normal (98%) SpO2: 98 - Course Nursing assessment & vital signs reviewed: Yes - Progress Progress: improved Progress Note: 11/27/18 14:14 78-year-old white male arrives with complaint of 2 weeks of left ear pain temporarily better after using ear drops. Patient otherwise doing well. Patient with a dull left tympanic membrane will go ahead and place patient on amoxicillin. - Departure Departure Disposition: Home Clinical Impression: Left ear pain Left otitis media Qualifiers: Otitis media type: unspecified Qualified Code(s): H66.92 - Otitis media, unspecified, left ear Condition: Fair Critical Care Time: No Referrals: JAVIER ZIMMERMAN [Primary Care Provider] - Additional Instructions: Return home. Amoxicillin 500 mg orally 3 times a day for 10 days. Tylenol every 4 hours as needed for pain. Followup with your family . Return for acute distress or for severe symptoms. Prescriptions: Amoxicillin 500 mg PO TID #30 capsule
[2018-11-27 14:38] VITALS: BP 158/70; PULSE 53
== END 2018-11-27 14:37 | disposition home or self-care (01) ==
LOC: ED 12:34
DX: H92.02 Otalgia, left ear (principal); H66.92 Otitis media, unspecified, left ear; H73.92 Unspecified disorder of tympanic membrane, left ear; I10 Essential (primary) hypertension; I25.2 Old myocardial infarction; J44.9 Chronic obstructive pulmonary disease, unspecified; E11.9 Type 2 diabetes mellitus without complications; K21.9 Gastro-esophageal reflux disease without esophagitis; Z98.61 Coronary angioplasty status
CPT/HCPCS: 99283

== ENCOUNTER 2020-02-13 09:44 | Emergency (ER) | payer MEDICARE ==
--- NOTE | 2020-02-13 09:52 | ERPHSYRPT ---
- History of Present Illness Time Seen by Provider: 02/13/20 09:52 Source: patient Exam Limitations: no limitations Physician History: This is a 80-year old insulin-dependent diabetic, hypertensive white male who is a patient of Dr. Mack and presents with left side throat tenderness and foreign body sensation when swallowing. Patient ate cantaloupe last night and feels that there is something stuck in his throat. Patient has had breakfast and is tolerating his secretions and has had food and liquids since the sensation began. He has no problems breathing. He denies chest pain. He denies cough. Patient has no history of regurgitating pills or undigested food. Patient does have a history of a thyroid nodule and he states it is time to have the thyroid nodule rechecked. He has not seen an ENT physician for this in over 2 years. Patient states that he quit smoking in 1991. He smoked for 25 to 30 years per his report. Timing/Duration: yesterday Severity: mild Modifying Factors: Improves With: other (Swallowing brings it on) Associated Symptoms: denies symptoms Allergies/Adverse Reactions: No Known Drug Allergies Allergy (Verified 11/27/18 13:17) Home Medications: Amlodipine Besylate 5 mg [Norvasc 5 mg] 5 mg PO DAILY 09/26/16 [History] Aspirin 81 gm Chew [Baby Aspirin 81 mg Chew] 81 mg PO DAILY 09/26/16 [History] Atorvastatin Calcium [Lipitor] 20 mg PO HS 09/26/16 [History] Dorzolamide HCl/Timolol Maleat [Dorzolamide-Timolol Eye Drops] 10 ml OP BID 09/26/16 [History] Furosemide 20 mg [Lasix 20 mg] 20 mg PO BID 09/26/16 [History] Gabapentin [Neurontin] 300 mg PO TID 09/26/16 [History] Insulin Aspart [NovoLOG Insulin] 10 unit SQ UD 09/26/16 [History] Insulin Glargine [Lantus Insulin] 50 unit SQ DAILY 09/26/16 [History] Latanoprost [Xalatan] 2.5 ml OP UD 09/26/16 [History] Metoprolol Succinate 25 mg Xl* [Toprol-Xl 25MG Tablets] 25 mg PO BID 09/26/16 [History] lisinopriL [Zestril] 40 mg PO DAILY 09/26/16 [History] Insulin Glargine,Hum.rec.anlog [Lantus] 80 unit SQ HS 09/28/16 [History] Niacin [Niaspan] 1,000 mg PO HS 09/28/16 [History] Hx Tetanus, Diphtheria Vaccination/Date Given: Yes Hx Influenza Vaccination/Date Given: No Hx Pneumococcal Vaccination/Date Given: No Travel Risk - International Travel Have you traveled outside of the country in past 3 weeks: No - Coronavirus Screening Are you exhibiting any of the following symptoms?: No Close contact with a COVID-19 positive Pt in past 14-21 Days: No - Review of Systems Constitutional: No Symptoms Eyes: No Symptoms Ears, Nose, & Throat: Painful Swallowing (Mild left side with foreign body sensation.) Respiratory: No Symptoms Cardiac: No Symptoms Abdominal/Gastrointestinal: No Symptoms Genitourinary Symptoms: No Symptoms Musculoskeletal: No Symptoms Skin: No Symptoms Neurological: No Symptoms Psychological: No Symptoms Endocrine: No Symptoms Hematologic/Lymphatic: No Symptoms Immunological/Allergic: No Symptoms All Other Systems: Reviewed and Negative - Past Medical History Pertinent Past Medical History: Yes Neurological History: No Pertinent History ENT History: Glaucoma, Other Cardiac History: Congenital Heart Disease, Hypertension, Myocardial Infarction (MT) Respiratory History: COPD Endocrine Medical History: Diabetes Type II Musculoskeletal History: Arthritis GI Medical History: Esophageal Disorder, GERD, Other History: No Pertinent History Psycho-Social History: No Pertinent History Male Reproductive Disorders: No Pertinent History Other Medical History: legally blind L eye, glaucoma R eye, trouble swallowing - Past Surgical History Past Surgical History: Yes Neuro Surgical History: No Pertinent History Cardiac: CABG Respiratory: No Pertinent History Gastrointestinal: Hernia Repair Genitourinary: No Pertinent History Musculoskeletal: No Pertinent History Male Surgical History: No Pertinent History Other Surgical History: R lower abdomen trouble with hernia from the past - Social History Smoking Status: Former smoker How long have you smoked: 20-30 year Exposure to second hand smoke: No Drug Use: none Patient Lives Alone: Yes - Nursing Vital Signs Nursing Vital Signs: Initial Vital Signs Temperature 98.1 F 02/13/20 09:50 Pulse Rate 68 02/13/20 09:50 Respiratory Rate 20 02/13/20 09:50 Blood Pressure 164/66 02/13/20 09:50 O2 Sat by Pulse Oximetry 96 02/13/20 09:50 Pain Scale Pain Intensity 0 - Physical Exam General Appearance: no apparent distress, alert, anxiety Eye Exam: PERRL/EOMI, eyes nml inspection Ears, Nose, Throat Exam: normal ENT inspection, moist mucous membranes Neck Exam: normal inspection, non-tender, supple, full range of motion, No lymphadenopathy Respiratory Exam: normal breath sounds, lungs clear, airway intact, No chest tenderness, No respiratory distress Cardiovascular Exam: regular rate/rhythm, normal heart sounds, normal peripheral pulses Gastrointestinal/Abdomen Exam: soft, normal bowel sounds, No tenderness, No guarding, No rebound Rectal Exam: not done Back Exam: normal inspection, normal range of motion, No CVA tenderness, No vertebral tenderness, No decreased range of motion Extremity Exam: normal inspection, normal range of motion, pelvis stable Neurologic Exam: alert, oriented x 3, cooperative, county judge II-XII nml as tested, normal mood/affect, nml cerebellar function, nml station & gait, sensation nml Skin Exam: normal color, warm, dry Lymphatic Exam: No adenopathy SpO2 Interpretation: normal O2 Delivery: Room Air Ordered Tests: Active Orders 24 hr Category Date Time Status NECK WO CONTRAST [CT] Stat Exams 02/13/20 10:28 Completed - Progress Progress: unchanged Progress Note: 02/13/20 11:56 CAT scan of the neck reveals no acute abnormality. There are some nonpathological appearing lymph nodes. No foreign body visualized Counseled pt/family regarding: diagnosis, need for follow-up, rad results - Departure Departure Disposition: Home Clinical Impression: Dysphagia Condition: Stable Critical Care Time: No Referrals: JAVIER ZIMMERMAN [Nurse Practioner] - Additional Instructions: Drink plenty of fluids. Follow up with ear nose and throat physician. See the list of physicians provided.
--- NOTE | 2020-02-13 11:49 | XRAY ---
Indication: Dysphagia. Multiple contiguous axial images obtained through the neck without contrast as ordered. Comparison: None Minimal mucus/food debris in the vallecula. Supra and infraglottic airway widely patent. Normal epiglottis. Thyroid gland unremarkable. There are multiple small subcentimeter cervical and submandibular lymph nodes bilaterally, none pathologically enlarged. Parotid and submandibular glands are bilaterally symmetric. Major minimal bilateral carotid calcifications. Remaining visualized noncontrasted soft tissues including base of the brain and lung apices are unremarkable. Partially visualized CABG surgery and mild bilateral maxillary sinus mucosal thickening left greater than right. Mild multilevel cervical degenerative spondylosis. Patient is nearly edentulous with right mandible condyle slightly subluxed anteriorly. Impression: 1. Small nonpathologic cervical/submandibular lymph nodes presumed reactive. 2. Minimal bilateral carotid calcifications, mild multilevel cervical degenerative spondylosis, and minimal bilateral maxillary sinus disease. 3. Right mandible condyle subluxed anteriorly. 4. Remaining CT neck without contrast exam is negative.
[2020-02-13 12:04] VITALS: PULSE 51; O2SAT 95
[2020-02-13 12:05] VITALS: BP 127/49
== END 2020-02-13 12:14 | disposition home or self-care (01) ==
LOC: ED 09:44
DX: R13.10 Dysphagia, unspecified (principal); E11.9 Type 2 diabetes mellitus without complications; I10 Essential (primary) hypertension; I25.2 Old myocardial infarction; J44.9 Chronic obstructive pulmonary disease, unspecified; K21.9 Gastro-esophageal reflux disease without esophagitis
CPT/HCPCS: 70490; 99283